=== PATIENT | female | born 1985 | race Caucasian/White ===

== ENCOUNTER → 2018-03-10 | Outpatient (CLI) | payer BC ==
[~2018-03-10] MED LIST: ACHD5005 PO; DCS100C PO; DICY20TA57 PO; FRS325T PO; IBP600T1 PO; PRNMV1T PO; TRAM-21 PO
--- NOTE | 2018-03-10 14:15 | Diagnostic Imaging Report ---
INDICATION: survey. TECHNIQUE: Multiple real-time grayscale images were obtained over the gravid uterus. COMPARISON: None. FINDINGS: Cervical length is 4.4 cm. There is a single live fetus in a transverse presentation, head to maternal left. heart rate was recorded at 152 beats per minute. Placenta is anterior and to the left. Amniotic fluid volume is normal. survey demonstrates kidneys, bladder and stomach to be unremarkable. Brain is unremarkable. There is a four-chamber heart. There is a three-vessel cord with normal insertion. spine is unremarkable. Maternal adnexa was not evaluated. Biometrical measurements are as follows: Biparietal 5.17 cm, age 21 weeks 5 days. Head circumference 19.29 cm, age 21 weeks 4 days. Abdominal circumference 16.36 cm, age 21 weeks 3 days. Femur length 3.61 cm, age 21 weeks 4 days. Sonographic estimate age: 21 weeks 4 days. Sonographic estimated date of delivery: 07/17/2018. Estimated Weight: 425 gm (+/- 62 gm). LMP percentile: 84%. heart rate: 152 beats per minute. number: 1 of 1. IMPRESSION: Single live IUP approximately 21 weeks 4 days gestational age. Estimated date of confinement sonographically is 07/17/2018. No complicating features are detected. Dictated by: Dictated on workstation # [id number]
== END ==
LOC: RAD 09:46
PROVIDERS: ATTEND Obstetrics & Gynecology
DX: Z36.89 Encounter for other specified antenatal screening (principal); Z3A.21 21 weeks gestation of pregnancy
CPT/HCPCS: 76805

== ENCOUNTER 2018-05-22 15:49 | Observation (INO) | payer BC ==
[~2018-05-22] VITALS: Ht 165.1 cm; Wt 100.4 kg
[2018-05-22] VITALS (11 sets, daily range): BP systolic 127–200; BP diastolic 72–104
--- NOTE | 2018-05-22 15:49 | NUR ---
FLORECITA SHAHID presented to unit from Dr. Mccormick's office, accompanied by , with c/o PRECLAMPSIA. FLORECITA SHAHID weighed, gowned, voided, and to bed. EFHM and TOCO applied, VS taken. FLORECITA SHAHID oriented to bed controls, call light, TV, heat, and A/C controls.
--- OUTSIDE RECORDS SUMMARY | 2018-05-22 16:12 | XMS REPORT | Continuity of Care Document ---
Author Author [facility] Organization [facility] Address Unknown Phone Unavailable Allergies Active Description Code Type Severity Reaction Onset Reported/Identified Relationship to Patient Clinical Status Yes cefaclor [id number] Drug Allergy Unknown N/A 02/24/2006 Medications There is no data. Problems Date Dx Coded Attending Type Code Diagnosis Diagnosed By 03/01/2013 WALLACE DEL RIO DO, Ot 642.31 TRANS HYPERTEN-DELIVERED 03/01/2013 WALLACE DEL RIO DO, Ot 659.71 ABN DEL FET HT RT/RHYTHM,W OR W/O MENTIO 03/01/2013 WALLACE DEL RIO DO, Ot 663.31 CORD ENTANGLE NEC-DELIV 03/01/2013 WALLACE DEL RIO DO Ot 664.01 DEL W 1 DEG LACERAT-DEL 03/01/2013 WALLACE DEL RIO DO, Ot V06.1 [id number], COMBINED [ 03/01/2013 WALLACE DEL RIO DO Ot V27.0 DELIVER-SINGLE LIVEBORN 10/17/2015 GONZALES DIXON MD Ot R22.1 LOCALIZED SWELLING, MASS AND LUMP, NECK 10/20/2015 GONZALES DIXON MD Ot R22.1 LOCALIZED SWELLING, MASS AND LUMP, NECK 10/22/2015 GONZALES DIXON MD Ot R22.1 LOCALIZED SWELLING, MASS AND LUMP, NECK 10/31/2015 GONZALES DIXON MD Ot R22.1 LOCALIZED SWELLING, MASS AND LUMP, NECK 03/10/2018 GONZALES DIXON MD, Ot R22.1 LOCALIZED SWELLING, MASS AND LUMP, NECK 03/24/2018 WALLACE DEL RIO DO Ot Z36.89 ENCOUNTER FOR OTHER SPECIFIED 03/24/2018 WALLACE DEL RIO DO, Ot Z3A.21 21 WEEKS GESTATION OF Procedures Code Description Performed By Performed On 73.09 ARTIF RUPT MEMBRANES NEC 02/27/2013 75.69 REPAIR OB LACERATION NEC 02/27/2013 Results There is no data. Encounters ACCT No. Visit Date/Time Discharge Status Pt. Type Provider Facility Loc./Unit Complaint [id number] 03/10/2018 09:46:00 03/10/2018 23:59:59 CLS Outpatient WALLACE DEL RIO DO [facility] RAD 18 WEEKS OF GESTATION [id number] 10/16/2015 10:32:00 10/16/2015 23:59:59 CLS Outpatient GONZALES DIXON MD [facility] RAD SUBMENTAL MASS [id number] 02/27/2013 08:28:00 03/01/2013 14:05:00 DIS Inpatient WALLACE DEL RIO DO [facility] WS LABOR [id number] 10/16/2015 10:29:00 Document Registration [id number] 02/28/2018 14:34:00 02/28/2018 23:59:00 DIS Outpatient Gonzales Dixon [id number] 12/21/2016 15:13:00 12/21/2016 23:59:00 DIS Outpatient ANAMARIA NEAL [id number] 11/03/2016 14:51:00 11/03/2016 23:59:00 DIS Outpatient Gonzales Dixon [id number] 01/05/2016 11:43:00 01/05/2016 23:59:00 DIS Outpatient ANAMARIA NEAL [id number] 02/27/2013 08:35:52 ACT Document Registration
[2018-05-22] MEDS ORDERED: D5 LR IV SOLUTION 1,000 ML IV ONE (16:24)
[2018-05-22] MEDS ORDERED: BETAMETHASONE ACE/NA PHOS 6 MG/ML (CELESTONE SOLUSPAN) ONE (16:24)
[2018-05-22] MEDS ORDERED: hydrALAZINE (APESOLINE) 20 MG/ML VIAL ONE (16:24)
[2018-05-22] MEDS ORDERED: hydrALAZINE (APESOLINE) 20 MG/ML VIAL IV ONE (16:30)
[2018-05-22] MEDS: D5 LR IV SOLUTION 1,000 ML IV SCH (16:35)
[2018-05-22] MEDS: BETAMETHASONE ACE/NA PHOS 6 MG/ML (CELESTONE SOLUSPAN) IM SCH (16:41)
[2018-05-22 17:14] LABS: BASOPHILS % (AUTO) 0 % (0-10); EOSINOPHILS % (AUTO) 0 % (0-10); HEMATOCRIT 36 % (35-52); HEMOGLOBIN 12.9 G/DL (11.5-16.0); LYMPHOCYTES # (AUTO) 1.5 X 10^3 (1.0-4.0); LYMPHOCYTES % (AUTO) 21 % (12-44); MEAN CORPUSCULAR HEMOGLOBIN 30 PG (25-34); MEAN CORPUSCULAR HGB CONC 36 G/DL (32-36); MEAN CORPUSCULAR VOLUME 84 FL (80-99); MEAN PLATELET VOLUME 9.9 FL (7.4-10.4); MONOCYTES # (AUTO) 0.5 X 10^3 (0.0-1.0); MONOCYTES % (AUTO) 7 % (0-12); NEUTROPHILS # (AUTO) 5.3 X 10^3 (1.8-7.8); NEUTROPHILS % (AUTO) 72 % (42-75); PLATELET COUNT 186 10^3/uL (130-400); RED CELL DISTRIBUTION WIDTH 12.5 % (10.0-14.5); WHITE BLOOD COUNT 7.4 10^3/uL (4.3-11.0)
[2018-05-22] MEDS ORDERED: amLODIPine 10 MG (NORVASC) TAB PO NR (17:15)
--- NOTE | 2018-05-22 17:25 | NUR ---
Dr. Mccormick updated on Ultrasound reports. New orders received.
[2018-05-22] MEDS ORDERED: LABETALOL 200 MG (NORMODYNE) TAB PO ONE (17:28)
[2018-05-22] MEDS ORDERED: amLODIPine 10 MG (NORVASC) TAB ONE (17:28)
[2018-05-22] MEDS: LABETALOL 200 MG (NORMODYNE) TAB PO SCH ×2 (17:30→21:03)
[2018-05-22 17:32] LABS: ALANINE AMINOTRANSFERASE 20 U/L (0-55); ALBUMIN 3.4 GM/DL (3.2-4.5); ALKALINE PHOSPHATASE 151 U/L (40-136); BILIRUBIN,TOTAL 0.5 MG/DL (0.1-1.0); BUN/CREATININE RATIO 25; CALCIUM 10.1 MG/DL (8.5-10.1); CARBON DIOXIDE 18 MMOL/L (21-32); CHLORIDE 105 MMOL/L (98-107); CREATININE SERUM 0.79 MG/DL (0.60-1.30); GFR ESTIMATED > 60; GLUCOSE 96 MG/DL (70-105); POTASSIUM 4.3 MMOL/L (3.6-5.0); SODIUM 133 MMOL/L (135-145); TOTAL PROTEIN 6.2 GM/DL (6.4-8.2); URIC ACID 9.6 MG/DL (2.6-7.2)
[2018-05-22 18:06] LABS: BILIRUBIN,URINE NEGATIVE (NEGATIVE); CLARITY,URINE SLIGHTLY CLOUDY; COLOR,URINE YELLOW; GLUCOSE, URINE (UA) NEGATIVE (NEGATIVE); KETONES,URINE NEGATIVE (NEGATIVE); LEUKOCYTE ESTERASE ,URINE NEGATIVE (NEGATIVE); NITRITE,URINE NEGATIVE (NEGATIVE); PH,URINE 7 (5-9); PROTEIN,URINE 4+ (NEGATIVE); UROBILINOGEN,URINE NORMAL (NORMAL)
[2018-05-22 18:14] LABS: BACTERIA,URINE NEGATIVE /HPF; RBC,URINE 0-2 /HPF
--- NOTE | 2018-05-22 19:20 | NUR ---
Report to Kailyn Whitlock RN.
--- NOTE | 2018-05-22 20:14 | NUR ---
called unit, regarding results on protein creat ratio updated to her per. Trey díaz. POC reviewed with rn to try and keep pt for beta inj and try to prolong as there are no signs of compromise. No tylenol ordered at this time as physician wants to be aware if pt has headaches, rn asked about vital frequency, orders for q4vs and if blood pressures are persistently over 180/110 to notify her. Understanding voiced per rn.
[2018-05-23 04:51] VITALS: BP 131/65
[2018-05-23] MEDS: D5 LR IV SOLUTION 1,000 ML IV SCH ×2 (04:58→18:20)
--- NOTE | 2018-05-23 06:51 | NUR ---
Pt to scale for wt, as pt gets up, pt reports having a dull headache throughout the night, rn asks if pt is currently having a headache and pt denies head pain at this time.
--- NOTE | 2018-05-23 06:59 | Progress Note (SOAP) ---
Subjective Date Seen by a Provider: May 23, 2018 Time Seen by a Provider: 08:00 Subjective/Events-last exam Admitted yesterday for expectant management of severe preeclampsia. Discussed transfer to tertiary care center. she would like to stay closer to home as long as possible but understands that will require delivery at some point. As she is less than 34 weeks and clinically stable, expectant management is acceptable. Will keep her here on bedrest and with conservative management of severe preeclampsia. There is no evidence of growth restriction, renal compromise, severe headache or visual changes, coagulopathy, etc. EFW is AGA, EVELIO is 11. BPP 8/8 and tracing category I. Overnight blood pressures have improved. Initial BP in severe ranges. Given Hydralazine x 1 and then increased doses of Labetalol and Norvasc (will be on 400 mg bid and 10 mg daily). Labs wnl except Uric acid and urine protein. Will do daily BPP/NST and growth scans weekly if she remains at [facility]. Will transfer to [facility] ([facility] per her request if beds are available). Betamethasone was started and will continue tomorrow. She has not had headache or blurred vision. Peripheral edema has improved. SCDs are in place. Wlll start daily Lovenox as labs are wnl. VS - Last 72 Hours, by Label 05/22/18 05/22/18 05/22/18 05/22/18 16:03 16:20 16:34 16:50 Temp 99.3 Pulse 93 85 86 86 Resp 16 16 16 16 B/P (MAP) 200/104 (136) 173/81 (111) 174/87 (116) 163/85 (111) Pulse Ox 99 99 99 98 O2 Delivery Room Air Room Air Room Air Room Air 05/22/18 05/22/18 05/22/18 05/22/18 17:05 17:20 17:35 17:50 Pulse 85 93 85 88 Resp 16 16 16 16 B/P (MAP) 163/86 (111) 165/87 (113) 166/88 (114) 163/82 (109) Pulse Ox 98 98 98 98 O2 Delivery Room Air Room Air Room Air Room Air 05/22/18 05/22/18 05/22/18 05/22/18 18:00 18:05 21:00 23:57 Temp 99.5 Pulse 85 90 89 Resp 16 18 18 B/P (MAP) 165/80 (108) 155/79 (104) 127/72 (90) Pulse Ox 98 O2 Delivery Room Air Room Air Room Air 05/23/18 04:51 Temp 98.6 Pulse 91 Resp 18 B/P (MAP) 131/65 (87) O2 Delivery Room Air Laboratory Tests Test 05/22/18 15:00 05/22/18 17:05 Range/Units Urine Color YELLOW Urine Clarity SLIGHTLY CLOUDY Urine pH 7 5-9 Urine Specific [place] 1.010 L 1.016-1.022 Urine Protein 832 H 6-12 MG/DL Urine Glucose (UA) NEGATIVE NEGATIVE Urine Ketones NEGATIVE NEGATIVE Urine Nitrite NEGATIVE NEGATIVE Urine Bilirubin NEGATIVE NEGATIVE Urine Urobilinogen NORMAL NORMAL MG/DL Urine Leukocyte Esterase NEGATIVE NEGATIVE Urine RBC (Auto) 1+ H NEGATIVE Urine RBC 0-2 /HPF Urine WBC NONE /HPF Urine Squamous Epithelial Cells 2-5 /HPF Urine Crystals NONE /LPF Urine Bacteria NEGATIVE /HPF Urine Casts NONE /LPF Urine Mucus NEGATIVE /LPF Urine Culture Indicated CULTURE PENDING Urine Creatinine 39 30-125 MG/DL Urine Protein/Creatinine Ratio 21.33 White Blood Count 7.4 4.3-11.0 10^3/uL Red Blood Count 4.24 L 4.35-5.85 10^6/uL Hemoglobin 12.9 11.5-16.0 G/DL Hematocrit 36 35-52 % Mean Corpuscular Volume 84 80-99 FL Mean Corpuscular Hemoglobin 30 25-34 PG Mean Corpuscular Hemoglobin Concent 36 32-36 G/DL Red Cell Distribution Width 12.5 10.0-14.5 % Platelet Count 186 130-400 10^3/uL Mean Platelet Volume 9.9 7.4-10.4 FL Neutrophils (%) (Auto) 72 42-75 % Lymphocytes (%) (Auto) 21 12-44 % Monocytes (%) (Auto) 7 0-12 % Eosinophils (%) (Auto) 0 0-10 % Basophils (%) (Auto) 0 0-10 % Neutrophils # (Auto) 5.3 1.8-7.8 X 10^3 Lymphocytes # (Auto) 1.5 1.0-4.0 X 10^3 Monocytes # (Auto) 0.5 0.0-1.0 X 10^3 Eosinophils # (Auto) 0.0 0.0-0.3 10^3/uL Basophils # (Auto) 0.0 0.0-0.1 10^3/uL Sodium Level 133 L 135-145 MMOL/L Potassium Level 4.3 3.6-5.0 MMOL/L Chloride Level 105 98-107 MMOL/L Carbon Dioxide Level 18 L 21-32 MMOL/L Anion Gap 10 5-14 MMOL/L Blood Urea Nitrogen 20 H 7-18 MG/DL Creatinine 0.79 0.60-1.30 MG/DL Estimat Glomerular Filtration Rate > 60 BUN/Creatinine Ratio 25 Glucose Level 96 70-105 MG/DL Uric Acid 9.6 H 2.6-7.2 MG/DL Calcium Level 10.1 8.5-10.1 MG/DL Corrected Calcium 10.6 H 8.5-10.1 MG/DL Total Bilirubin 0.5 0.1-1.0 MG/DL Aspartate Amino Transf (AST/SGOT) 30 5-34 U/L Alanine Aminotransferase (ALT/SGPT) 20 0-55 U/L Alkaline Phosphatase 151 H 40-136 U/L Lactate Dehydrogenase 370 H 125-220 U/L Total Protein 6.2 L 6.4-8.2 GM/DL Albumin 3.4 3.2-4.5 GM/DL Intake and Output 05/23/18 00:00 Output Total 250 ml Balance -250 ml Output Urine Total 250 ml Daily Weight Change No Objective Exam Vital Signs Date Time Temp Pulse Resp B/P (MAP) Pulse Ox O2 Delivery O2 Flow Rate FiO2 05/23/18 04:51 98.6 91 18 131/65 (87) Room Air 05/22/18 23:57 89 18 127/72 (90) Room Air 05/22/18 21:00 90 18 155/79 (104) Room Air 05/22/18 18:05 85 16 165/80 (108) 98 Room Air 05/22/18 18:00 99.5 05/22/18 17:50 88 16 163/82 (109) 98 Room Air 05/22/18 17:35 85 16 166/88 (114) 98 Room Air 05/22/18 17:20 93 16 165/87 (113) 98 Room Air 05/22/18 17:05 85 16 163/86 (111) 98 Room Air 05/22/18 16:50 86 16 163/85 (111) 98 Room Air 05/22/18 16:34 86 16 174/87 (116) 99 Room Air 05/22/18 16:20 85 16 173/81 (111) 99 Room Air 05/22/18 16:03 99.3 93 16 200/104 (136) 99 Room Air I & O 05/23/18 07:00 Intake Total 900 ml Output Total 800 ml Balance 100 ml Capillary Refill : General Appearance: No Apparent Distress Respiratory: Chest Non Tender, Lungs Clear, Normal Breath Sounds Cardiovascular: Regular Rate, Rhythm, Other (3+ edema. SCDs in place) Results Lab Laboratory Tests 05/22/18 15:00: Urine Color YELLOW, Urine Clarity SLIGHTLY CLOUDY, Urine pH 7, Urine Specific [place] 1.010L, Urine Protein 832H, Urine Glucose (UA) NEGATIVE, Urine Ketones NEGATIVE, Urine Nitrite NEGATIVE, Urine Bilirubin NEGATIVE, Urine Urobilinogen NORMAL, Urine Leukocyte Esterase NEGATIVE, Urine RBC (Auto) 1+H, Urine RBC 0-2, Urine WBC NONE, Urine Squamous Epithelial Cells 2-5, Urine Crystals NONE, Urine Bacteria NEGATIVE, Urine Casts NONE, Urine Mucus NEGATIVE, Urine Culture Indicated CULTURE PENDING, Urine Creatinine 39, Urine Protein/Creatinine Ratio 21.33 05/22/18 17:05: White Blood Count 7.4, Red Blood Count 4.24L, Hemoglobin 12.9, Hematocrit 36, Mean Corpuscular Volume 84, Mean Corpuscular Hemoglobin 30, Mean Corpuscular Hemoglobin Concent 36, Red Cell Distribution Width 12.5, Platelet Count 186, Mean Platelet Volume 9.9, Neutrophils (%) (Auto) 72, Lymphocytes (%) (Auto) 21, Monocytes (%) (Auto) 7, Eosinophils (%) (Auto) 0, Basophils (%) (Auto) 0, Neutrophils # (Auto) 5.3, Lymphocytes # (Auto) 1.5, Monocytes # (Auto) 0.5, Eosinophils # (Auto) 0.0, Basophils # (Auto) 0.0, Sodium Level 133L, Potassium Level 4.3, Chloride Level 105, Carbon Dioxide Level 18L, Anion Gap 10, Blood Urea Nitrogen 20H, Creatinine 0.79, Estimat Glomerular Filtration Rate > 60, BUN /Creatinine Ratio 25, Glucose Level 96, Uric Acid 9.6H, Calcium Level 10.1, Corrected Calcium 10.6H, Total Bilirubin 0.5, Aspartate Amino Transf (AST/SGOT) 30, Alanine Aminotransferase (ALT/SGPT) 20, Alkaline Phosphatase 151H, Lactate Dehydrogenase 370H, Total Protein 6.2L, Albumin 3.4 Assessment/Plan Assessment/Plan Assess & Plan/Chief Complaint 1. Severe preeclampsia 2. 31 2/7 weeks gestation Clinical Quality Measures DVT/VTE Risk/Contraindication: Risk Factor Score Per Nursin RFS Level Per Nursing on Admit: 1=Low/No VTE PPX WALLACE DEL RIO DO May 23, 2018 06:59
[2018-05-23 08:55] VITALS: BP 140/74
[2018-05-23] MEDS: amLODIPine 10 MG (NORVASC) TAB PO SCH (08:55)
[2018-05-23] MEDS: LABETALOL 200 MG (NORMODYNE) TAB PO SCH ×3 (08:55→21:06)
[2018-05-23] MEDS: ENOXAPARIN 40 MG/0.4 ML (LOVENOX) SYR SC SCH (08:55)
--- NOTE | 2018-05-23 08:55 | NUR ---
AM shift assessment completed and vital signs obtained, see interventions. Plan of care reviewed. Patient verbalizes understanding and questions answered. Scheduled Labetalol and Norvasc PO along with Lovenox SC given per order.
--- NOTE | 2018-05-23 09:50 | NUR ---
Dr. Mccormick updated on patient's status. New orders received.
[2018-05-23] MEDS ORDERED: CALCIUM CARBONATE 500 MG (TUMS) TAB.CHEW PO PRN (10:00)
--- NOTE | 2018-05-23 10:15 | NUR ---
IV heplocked and covered, shower supplies provided. Patient up to shower. Linens changed.
--- NOTE | 2018-05-23 12:19 | Diagnostic Imaging Report ---
INDICATION: Preeclampsia. TECHNIQUE: Multiple real-time grayscale images were obtained over the gravid uterus. COMPARISON: 03/10/2018. FINDINGS: There is a single living intrauterine in a cephalic presentation. There is normal volume of amniotic fluid. Amniotic fluid index is 11.6. Placenta is anterior. There is no previa. Heart rate is 139 beats per minute and regular. The biometry correlates with a gestational age of 31 weeks 6 days. The biophysical profile score is 8 out of 8. IMPRESSION: Single living intrauterine with a sonographically estimated gestational age of 31 weeks 6 days and estimated date of confinement July 18, 2018. Normal biophysical profile score of 8 out of 8. Biometrical measurements are as follows: Biparietal 7.89 cm, age 31 weeks 5 days. Head circumference 28.27 cm, age 31 weeks 1 days. Abdominal circumference 27.84 cm, age 32 weeks 0 days. Femur length 6.24 cm, age 32 weeks 3 days. Sonographic estimate age: 31 weeks 6 days. Sonographic estimated date of delivery: 07/18/2018 . Estimated Weight: 1863 gm (+/- 272 gm). LMP percentile: 64 %. heart rate: 139 beats per minute. number: 1 of 1 . Dictated by: Dictated on workstation # [id number]
[2018-05-23 12:21] VITALS: BP 129/67
--- NOTE | 2018-05-23 14:23 | NUR ---
Dr. Mccormick notified of patient's request for Tylenol. New order received.
[2018-05-23] MEDS ORDERED: ACETAMINOPHEN 500 MG TAB (TYLENOL) ONE (14:25)
[2018-05-23] MEDS ORDERED: ACETAMINOPHEN 500 MG TAB (TYLENOL) PO PRN (14:30)
[2018-05-23 16:45] VITALS: BP 125/68
[2018-05-23] MEDS: BETAMETHASONE ACE/NA PHOS 6 MG/ML (CELESTONE SOLUSPAN) IM SCH ×2 (16:45→17:10)
--- NOTE | 2018-05-23 16:45 | NUR ---
Betamethasone administered in patient's right hip. Family at bedside.
--- NOTE | 2018-05-23 19:30 | NUR ---
Report to Kailyn Whitlock RN.
[2018-05-23 21:06] VITALS: BP 130/74
[2018-05-24 00:21] VITALS: BP 127/70
[2018-05-24 06:05] VITALS: BP 147/75
[2018-05-24] MEDS ORDERED: PRENATAL VITAMIN 1 EA TAB PO SCH (07:00)
[2018-05-24 08:35] VITALS: BP 140/72
[2018-05-24] MEDS: amLODIPine 10 MG (NORVASC) TAB PO SCH (08:35)
[2018-05-24] MEDS: LABETALOL 200 MG (NORMODYNE) TAB PO SCH ×2 (08:35→13:17)
[2018-05-24] MEDS: ENOXAPARIN 40 MG/0.4 ML (LOVENOX) SYR SC SCH (08:35)
--- NOTE | 2018-05-24 08:49 | Progress Note-Standard ---
Standard Progress Note Progress Notes/Assess & Plan Date Seen by a Provider: May 24, 2018 Time Seen by a Provider: 09:00 Progress/Assessment & Plan Patient has gained 8 # overnight. blood pressures are sl increased but still not in severe range with medication treatment. She states she still has a dull headache but no visual changes. She has not been voiding as ,much as she thinks she should be. No contractions, no vaginal discharge or bleeding. There is good movement. discussed that she will not be able to be monitored at home which she understands but I am considering transfer to [place] as I believe that delivery may be sooner than expected (next few days). Will repeat labs (planned for tomorrow) well being has continued to be reassuring. No contractions noted. VS - Last 72 Hours, by Label 05/22/18 05/22/18 05/22/18 05/22/18 16:03 16:20 16:34 16:50 Temp 99.3 Pulse 93 85 86 86 Resp 16 16 16 16 B/P (MAP) 200/104 (136) 173/81 (111) 174/87 (116) 163/85 (111) Pulse Ox 99 99 99 98 O2 Delivery Room Air Room Air Room Air Room Air 05/22/18 05/22/18 05/22/18 05/22/18 17:05 17:20 17:35 17:50 Pulse 85 93 85 88 Resp 16 16 16 16 B/P (MAP) 163/86 (111) 165/87 (113) 166/88 (114) 163/82 (109) Pulse Ox 98 98 98 98 O2 Delivery Room Air Room Air Room Air Room Air 05/22/18 05/22/18 05/22/18 05/22/18 18:00 18:05 21:00 23:57 Temp 99.5 Pulse 85 90 89 Resp 16 18 18 B/P (MAP) 165/80 (108) 155/79 (104) 127/72 (90) Pulse Ox 98 O2 Delivery Room Air Room Air Room Air 05/23/18 05/23/18 05/23/18 05/23/18 04:51 08:55 12:21 16:45 Temp 98.6 98.8 98.7 99.5 Pulse 91 86 86 83 Resp 18 16 16 16 B/P (MAP) 131/65 (87) 140/74 (96) 129/67 (87) 125/68 (87) Pulse Ox 98 98 97 O2 Delivery Room Air Room Air Room Air Room Air 05/23/18 05/23/18 05/24/18 05/24/18 21:06 21:40 00:21 06:05 Temp 100.6 99.7 98.3 Pulse 82 86 93 Resp 16 16 16 B/P (MAP) 130/74 (92) 127/70 (89) 147/75 (99) O2 Delivery Room Air Room Air Room Air 05/23/18 05/23/18 05/24/18 05/24/18 21:06 21:40 00:21 06:05 Temp 100.6 99.7 98.3 Pulse 82 86 93 Resp 16 16 16 B/P (MAP) 130/74 (92) 127/70 (89) 147/75 (99) O2 Delivery Room Air Room Air Room Air 05/24/18 00:00 Intake Total 1000 ml Balance 1000 ml final us results NAME: FLORECITA SHAHID [facility] REC#: [id number] PT STATUS: ADM Mao : 1985 PHYSICIAN: WALLACE DEL RIO DO ADMIT DATE: 05/22/18/LDRP Signed Date of Exam: 05/22/18 US OB >14WK BIO PHYS WO STRESS INDICATION: Preeclampsia. TECHNIQUE: Multiple real-time grayscale images were obtained over the gravid uterus. COMPARISON: 03/10/2018. FINDINGS: There is a single living intrauterine in a cephalic presentation. There is normal volume of amniotic fluid. Amniotic fluid index is 11.6. Placenta is anterior. There is no previa. Heart rate is 139 beats per minute and regular. The biometry correlates with a gestational age of 31 weeks 6 days. The biophysical profile score is 8 out of 8. IMPRESSION: Single living intrauterine with a sonographically estimated gestational age of 31 weeks 6 days and estimated date of confinement July 18, 2018. Normal biophysical profile score of 8 out of 8. Biometrical measurements are as follows: Biparietal 7.89 cm, age 31 weeks 5 days. Head circumference 28.27 cm, age 31 weeks 1 days. Abdominal circumference 27.84 cm, age 32 weeks 0 days. Femur length 6.24 cm, age 32 weeks 3 days. Sonographic estimate age: 31 weeks 6 days. Sonographic estimated date of delivery: 07/18/2018 . Estimated Weight: 1863 gm (+/- 272 gm). LMP percentile: 64 %. heart rate: 139 beats per minute. number: 1 of 1 . Dictated by: Dictated on workstation # [id number] Dict: 05/23/18 1202 Trans: 05/23/18 1220 Interpreted by: AMELIA WINCHESTER MD Electronically signed by: AMELIA WINCHESTER MD 05/24/18 0629 Lungs are clear Face is flushed (T 99) Heart RR Abdomen is soft and non tender She has Rolando and SCDs in place but still with edema. Has received Lovenox. ( stopped ASa on admission) Assessment/Plan - 1. Severe preeclampsis with expectant management. will consult Dr. Robles ( [facility]) and consider transfer to [place] [id number]. 31 3/7 weeks gestation Has received betamethasone x 2 (last dose 05/23/18 at 1615. labetalol 400 mg bid and Norvasc 10 mg daily are controlling her blood pressures. Laboratory Tests Test 05/24/18 09:40 Range/Units White Blood Count 11.3 H 4.3-11.0 10^3/uL Red Blood Count 3.72 L 4.35-5.85 10^6/uL Hemoglobin 11.3 L 11.5-16.0 G/DL Hematocrit 32 L 35-52 % Mean Corpuscular Volume 85 80-99 FL Mean Corpuscular Hemoglobin 30 25-34 PG Mean Corpuscular Hemoglobin Concent 36 32-36 G/DL Red Cell Distribution Width 12.5 10.0-14.5 % Platelet Count 146 130-400 10^3/uL Mean Platelet Volume 10.1 7.4-10.4 FL Neutrophils (%) (Auto) 85 H 42-75 % Lymphocytes (%) (Auto) 10 L 12-44 % Monocytes (%) (Auto) 4 0-12 % Eosinophils (%) (Auto) 0 0-10 % Basophils (%) (Auto) 0 0-10 % Neutrophils # (Auto) 9.7 H 1.8-7.8 X 10^3 Lymphocytes # (Auto) 1.1 1.0-4.0 X 10^3 Monocytes # (Auto) 0.5 0.0-1.0 X 10^3 Eosinophils # (Auto) 0.0 0.0-0.3 10^3/uL Basophils # (Auto) 0.0 0.0-0.1 10^3/uL Sodium Level 126 L 135-145 MMOL/L Potassium Level 4.4 3.6-5.0 MMOL/L Chloride Level 101 98-107 MMOL/L Carbon Dioxide Level 17 L 21-32 MMOL/L Anion Gap 8 5-14 MMOL/L Blood Urea Nitrogen 32 H 7-18 MG/DL Creatinine 0.83 0.60-1.30 MG/DL Estimat Glomerular Filtration Rate > 60 BUN/Creatinine Ratio 39 Glucose Level 104 70-105 MG/DL Uric Acid 10.7 H 2.6-7.2 MG/DL Calcium Level 8.4 L 8.5-10.1 MG/DL Corrected Calcium 9.1 8.5-10.1 MG/DL Total Bilirubin 0.5 0.1-1.0 MG/DL Aspartate Amino Transf (AST/SGOT) 29 5-34 U/L Alanine Aminotransferase (ALT/SGPT) 23 0-55 U/L Alkaline Phosphatase 125 40-136 U/L Lactate Dehydrogenase 255 H 125-220 U/L Total Protein 5.5 L 6.4-8.2 GM/DL Albumin 3.1 L 3.2-4.5 GM/DL Final Diagnosis Severe preeclampsia 31 week gestation WALLACE DEL RIO DO May 24, 2018 08:49
--- NOTE | 2018-05-24 08:55 | NUR ---
dr perez here. new orders received. reviewed poc with patient.
[2018-05-24 09:52] LABS: BASOPHILS % (AUTO) 0 % (0-10); EOSINOPHILS % (AUTO) 0 % (0-10); HEMATOCRIT 32 % (35-52); HEMOGLOBIN 11.3 G/DL (11.5-16.0); LYMPHOCYTES # (AUTO) 1.1 X 10^3 (1.0-4.0); LYMPHOCYTES % (AUTO) 10 % (12-44); MEAN CORPUSCULAR HEMOGLOBIN 30 PG (25-34); MEAN CORPUSCULAR HGB CONC 36 G/DL (32-36); MEAN CORPUSCULAR VOLUME 85 FL (80-99); MEAN PLATELET VOLUME 10.1 FL (7.4-10.4); MONOCYTES # (AUTO) 0.5 X 10^3 (0.0-1.0); MONOCYTES % (AUTO) 4 % (0-12); NEUTROPHILS # (AUTO) 9.7 X 10^3 (1.8-7.8); NEUTROPHILS % (AUTO) 85 % (42-75); PLATELET COUNT 146 10^3/uL (130-400); RED CELL DISTRIBUTION WIDTH 12.5 % (10.0-14.5); WHITE BLOOD COUNT 11.3 10^3/uL (4.3-11.0)
[2018-05-24 10:14] LABS: ALANINE AMINOTRANSFERASE 23 U/L (0-55); ALBUMIN 3.1 GM/DL (3.2-4.5); ALKALINE PHOSPHATASE 125 U/L (40-136); BILIRUBIN,TOTAL 0.5 MG/DL (0.1-1.0); BUN/CREATININE RATIO 39; CALCIUM 8.4 MG/DL (8.5-10.1); CARBON DIOXIDE 17 MMOL/L (21-32); CHLORIDE 101 MMOL/L (98-107); CREATININE SERUM 0.83 MG/DL (0.60-1.30); GFR ESTIMATED > 60; GLUCOSE 104 MG/DL (70-105); POTASSIUM 4.4 MMOL/L (3.6-5.0); SODIUM 126 MMOL/L (135-145); TOTAL PROTEIN 5.5 GM/DL (6.4-8.2); URIC ACID 10.7 MG/DL (2.6-7.2)
[2018-05-24 13:17] VITALS: BP 139/79
--- NOTE | 2018-05-24 14:08 | Discharge Summary ---
Diagnosis/Chief Complaint Date of Admission May 22, 2018 at 15:49 Date of Discharge 05/24/18 1430 Discharge Date: May 24, 2018 Admission Diagnosis Admission Diagnosis severe preeclampsia 31 week gestation Discharge Diagnosis Same Reason Hospital Visit Patient was admitted from the office for BP 174/114. Has had increasing blood pressures the last two visit and have started antihypertensives. Friday 05/19 BP was still 164/100 so Norvasc was added to labetalol 300 mg bid. 24 hours urine started and results brought to clinic. 3 grams protein/24 hours. She is admitted for expectant management of severe preeclampsia due to the early gestation. IV hydralazine was given for BP 200/105. and then started on labetalol 400 mg po bid and Norvasc 10 mg. Discharge Summary-OBS Procedures None. Consultations MFM Dr. Robles via phone/ Discharge Physical Examination Allergies: Coded Allergies: Cefaclor (Verified Allergy, Unknown, 02/24/06) Vitals & I&Os Vital Signs Date Time Temp Pulse Resp B/P (MAP) Pulse Ox O2 Delivery O2 Flow Rate FiO2 05/24/18 10:03 95 Room Air 05/24/18 08:35 99.9 92 16 140/72 (94) General Appearance: Alert, Oriented X3 HEENT: Atraumatic Respiratory: Clear to Auscultation, Normal Air Movement Cardiovascular: Regular Rate, Normal S1, Normal S2 Abdominal: Normal Bowel Sounds Extremities: No Clubbing, Other (3+ edema. SCD and MAHAD hose on) Neuro: Normal Gait, Normal Speech, Strength at 5/5 X4 Ext Psych/Mental Status: Mental Status NL Hospital Course Was the Problem List Reviewed?: Yes Patient was admitted and the above antihypertensives were started. Blood pressures have been controlled with this dosing. Betamethasone was started ( received 12 mg on 05/22 and 12 mg on 05/23). US shows adequate growth, BPP 8/8 EVELIO 12. tracing category I. No distress. She has had good blood pressure control but today has had 8 lb weight gain overnight and blood pressures are slightly increased (currently 147/76). Discussed with Dr. Robles who agrees that she should be transferred. we do not have the ability to do Doppler exams and need the higher level acuity. she is currently stable and would like transfer before she is not. Transfer has been initiated to [place]. Dr. Mahajan is the accepting physician with Dr. Robles consulting. Labs Laboratory Tests Test 05/22/18 15:00 05/22/18 15:49 05/22/18 17:05 05/24/18 09:40 Range/Units Urine Color YELLOW Urine Clarity SLIGHTLY CLOUDY Urine pH 7 5-9 Urine Specific [place] 1.010 L 1.016-1.022 Urine Protein 832 H 6-12 MG/DL Urine Glucose (UA) NEGATIVE NEGATIVE Urine Ketones NEGATIVE NEGATIVE Urine Nitrite NEGATIVE NEGATIVE Urine Bilirubin NEGATIVE NEGATIVE Urine Urobilinogen NORMAL NORMAL MG/DL Urine Leukocyte Esterase NEGATIVE NEGATIVE Urine RBC (Auto) 1+ H NEGATIVE Urine RBC 0-2 /HPF Urine WBC NONE /HPF Urine Squamous Epithelial Cells 2-5 /HPF Urine Crystals NONE /LPF Urine Bacteria NEGATIVE /HPF Urine Casts NONE /LPF Urine Mucus NEGATIVE /LPF Urine Culture Indicated CULTURE PENDING Urine Creatinine 39 30-125 MG/DL Urine Protein/Creatinine Ratio 21.33 Lab Scanned Report Referred Lab Report [id number] White Blood Count 7.4 11.3 H 4.3-11.0 10^3/uL Red Blood Count 4.24 L 3.72 L 4.35-5.85 10^6/uL Hemoglobin 12.9 11.3 L 11.5-16.0 G/DL Hematocrit 36 32 L 35-52 % Mean Corpuscular Volume 84 85 80-99 FL Mean Corpuscular Hemoglobin 30 30 25-34 PG Mean Corpuscular Hemoglobin Concent 36 36 32-36 G/DL Red Cell Distribution Width 12.5 12.5 10.0-14.5 % Platelet Count 186 146 130-400 10^3/uL Mean Platelet Volume 9.9 10.1 7.4-10.4 FL Neutrophils (%) (Auto) 72 85 H 42-75 % Lymphocytes (%) (Auto) 21 10 L 12-44 % Monocytes (%) (Auto) 7 4 0-12 % Eosinophils (%) (Auto) 0 0 0-10 % Basophils (%) (Auto) 0 0 0-10 % Neutrophils # (Auto) 5.3 9.7 H 1.8-7.8 X 10^3 Lymphocytes # (Auto) 1.5 1.1 1.0-4.0 X 10^3 Monocytes # (Auto) 0.5 0.5 0.0-1.0 X 10^3 Eosinophils # (Auto) 0.0 0.0 0.0-0.3 10^3/uL Basophils # (Auto) 0.0 0.0 0.0-0.1 10^3/uL Sodium Level 133 L 126 L 135-145 MMOL/L Potassium Level 4.3 4.4 3.6-5.0 MMOL/L Chloride Level 105 101 98-107 MMOL/L Carbon Dioxide Level 18 L 17 L 21-32 MMOL/L Anion Gap 10 8 5-14 MMOL/L Blood Urea Nitrogen 20 H 32 H 7-18 MG/DL Creatinine 0.79 0.83 0.60-1.30 MG/DL Estimat Glomerular Filtration Rate > 60 > 60 BUN/Creatinine Ratio 25 39 Glucose Level 96 104 70-105 MG/DL Uric Acid 9.6 H 10.7 H 2.6-7.2 MG/DL Calcium Level 10.1 8.4 L 8.5-10.1 MG/DL Corrected Calcium 10.6 H 9.1 8.5-10.1 MG/DL Total Bilirubin 0.5 0.5 0.1-1.0 MG/DL Aspartate Amino Transf (AST/SGOT) 30 29 5-34 U/L Alanine Aminotransferase (ALT/SGPT) 20 23 0-55 U/L Alkaline Phosphatase 151 H 125 40-136 U/L Lactate Dehydrogenase 370 H 255 H 125-220 U/L Total Protein 6.2 L 5.5 L 6.4-8.2 GM/DL Albumin 3.4 3.1 L 3.2-4.5 GM/DL Pending Labs Laboratory Tests 05/24/18 09:40: White Blood Count 11.3, Red Blood Count 3.72, Hemoglobin 11.3, Hematocrit 32, Mean Corpuscular Volume 85, Mean Corpuscular Hemoglobin 30, Mean Corpuscular Hemoglobin Concent 36, Red Cell Distribution Width 12.5, Platelet Count 146, Mean Platelet Volume 10.1, Neutrophils (%) (Auto) 85, Lymphocytes (%) (Auto) 10 , Monocytes (%) (Auto) 4, Eosinophils (%) (Auto) 0, Basophils (%) (Auto) 0, Neutrophils # (Auto) 9.7, Lymphocytes # (Auto) 1.1, Monocytes # (Auto) 0.5, Eosinophils # (Auto) 0.0, Basophils # (Auto) 0.0, Sodium Level 126, Potassium Level 4.4, Chloride Level 101, Carbon Dioxide Level 17, Anion Gap 8, Blood Urea Nitrogen 32, Creatinine 0.83, Estimat Glomerular Filtration Rate > 60, BUN/ Creatinine Ratio 39, Glucose Level 104, Uric Acid 10.7, Calcium Level 8.4, Corrected Calcium 9.1, Total Bilirubin 0.5, Aspartate Amino Transf (AST/SGOT) 29 , Alanine Aminotransferase (ALT/SGPT) 23, Alkaline Phosphatase 125, Lactate Dehydrogenase 255, Total Protein 5.5, Albumin 3.1 Radiology Reviewed NAME: [facility] REC#: [id number] PT STATUS: ADM Mao : 1985 PHYSICIAN: WALLACE DEL RIO DO ADMIT DATE: 05/22/18/LDRP Signed Date of Exam: 05/22/18 US OB >14WK BIO PHYS WO STRESS INDICATION: Preeclampsia. TECHNIQUE: Multiple real-time grayscale images were obtained over the gravid uterus. COMPARISON: 03/10/2018. FINDINGS: There is a single living intrauterine in a cephalic presentation. There is normal volume of amniotic fluid. Amniotic fluid index is 11.6. Placenta is anterior. There is no previa. Heart rate is 139 beats per minute and regular. The biometry correlates with a gestational age of 31 weeks 6 days. The biophysical profile score is 8 out of 8. IMPRESSION: Single living intrauterine with a sonographically estimated gestational age of 31 weeks 6 days and estimated date of confinement July 18, 2018. Normal biophysical profile score of 8 out of 8. Biometrical measurements are as follows: Biparietal 7.89 cm, age 31 weeks 5 days. Head circumference 28.27 cm, age 31 weeks 1 days. Abdominal circumference 27.84 cm, age 32 weeks 0 days. Femur length 6.24 cm, age 32 weeks 3 days. Sonographic estimate age: 31 weeks 6 days. Sonographic estimated date of delivery: 07/18/2018 . Estimated Weight: 1863 gm (+/- 272 gm). LMP percentile: 64 %. heart rate: 139 beats per minute. number: 1 of 1 . Dictated by: Dictated on workstation # [id number] Dict: 05/23/18 1202 Trans: 05/23/18 1220 Interpreted by: AMELIA WINCHESTER MD Electronically signed by: AMELIA WINCHESTER MD 05/24/18 0629 Discussion & Recommendations see above Discharge Condition at discharge stable Instructions to patient/family Please see electronic discharge instructions given to patient. Discharge Medications Reviewed and agree with Discharge Medication list on patient's Discharge Instruction sheet Clinical Quality Measures DVT/VTE Risk/Contraindication: Risk Factor Score Per Nursin RFS Level Per Nursing on Admit: 1=Low/No VTE PPX WALLACE DEL RIO DO May 24, 2018 14:08
--- NOTE | 2018-05-24 14:13 | NUR ---
DR. DEL RIO TO PT'S BEDSIDE TO DISCUSS POC/ TRANSFER.
--- NOTE | 2018-05-24 14:24 | NUR ---
CONSENT FOR TRANSFER TO [place] SIGNED AT THIS TIME.
--- NOTE | 2018-05-24 14:26 | NUR ---
PT PREPPING TO SHOWER BEFORE TRANSFER.
--- NOTE | 2018-05-24 14:45 | NUR ---
REPORT TO ASHLEY ATWOOD AT [facility].
--- NOTE | 2018-05-24 15:12 | NUR ---
REFER TO LABOR FLOW SHEET.
--- NOTE | 2018-05-24 15:14 | NUR ---
PT DISCHARGED FROM -[facility] IN STABLE CONDITION [facility] BY [facility].
== END 2018-05-24 15:14 | disposition short-term general hospital (02) ==
LOC: LDRP 15:49
PROVIDERS: ADMIT Obstetrics & Gynecology; ATTEND Obstetrics & Gynecology
DX: O14.13 Severe pre-eclampsia, third trimester (principal); Z3A.31 31 weeks gestation of pregnancy
CPT/HCPCS: 36415; 76805; 76819; 80053; 81000; 82570; 83615; 84156; 84550; 85025; 86850; 86900; 86901; 87088; 94664; 96361; 96372; 96374; 99211; G0378

== ENCOUNTER → 2021-01-01 | Outpatient (CLI) | payer BC ==
--- NOTE | 2021-01-02 14:15 | Diagnostic Imaging Report ---
Indication: Routine screening. No prior mammograms are available for comparison. This a baseline study. 2-D and 3-D bilateral screening mammography was performed with CAD. Both breasts are heterogeneously dense, limiting the sensitivity of mammography. No mass or malignant-appearing microcalcifications are seen. Axillae are unremarkable. IMPRESSION: BI-RADS Category 1 No mammographic features suspicious for malignancy are identified. ACR BI-RADS Category 1: Negative. Result letter will be mailed to the patient. Note: At least 10% of breast cancer is not imaged by mammography. Dictated by: Dictated on workstation # [id number]
== END ==
LOC: RAD 14:45
PROVIDERS: ATTEND Obstetrics & Gynecology
DX: Z12.31 Encounter for screening mammogram for malignant neoplasm of breast (principal)
CPT/HCPCS: 77063; 77067